=== PATIENT | male | born 1960 | race Two or more races ===

== ENCOUNTER 2018-09-27 19:20 | Emergency (ER) | payer OTHER ==
[~2018-09-27] VITALS: Ht 167.6 cm; Wt 95.3 kg
--- NOTE | 2018-09-27 20:26 | PHYS DOC ---
Past Medical History Past Medical History: Other Additional Past Medical Histor: CHRONIC BACK/ABD PAIN (TYRA RG APRN) Past Surgical History: Other Additional Past Surgical Histo: "BACK SURGERY" (TYRA RG APRN) Alcohol Use: None Drug Use: None (TYRA RG APRN) Adult General Chief Complaint Chief Complaint: HEADACHE HPI HPI Patient is a 58 year old male who presents with 1 day complaint of headache, dry and productive cough, sore throat, general malaise. Patient reports he started to feel this way tonight, had a little bit illness morning had taken a Tylenol at that time, which made his symptoms improve. Reports is not taking anything since that time. Patient denies any discomfort other than to head, reports his mouth, denies any visual changes, denies dizziness, denies chest pain, denies abdominal pain. Reports he is able to eat and drink today. Reports he went to work today, but he does not think he can go to work tomorrow. (TYRA RG APRN) Review of Systems Review of Systems Constitutional: Denies fever or chills [] Eyes: Denies change in visual acuity, redness, or eye pain [] HENT: Denies nasal congestion does report sore throat [] Respiratory: Reports dry, nonproductive cough starting today. Denies shortness of breath [] Cardiovascular: No additional information not addressed in HPI [] GI: Denies abdominal pain, nausea, vomiting, bloody stools or diarrhea [] : Denies dysuria or hematuria [] Musculoskeletal: Denies back pain or joint pain [] Integument: Denies rash or skin lesions [] Neurologic: Denies headache, focal weakness or sensory changes [] Endocrine: Denies polyuria or polydipsia [] All other systems were reviewed and found to be within normal limits, except as documented in this note. (TYRA RG APRN) Current Medications Current Medications Current Medications Medications (Trade) Dose Ordered Sig/Lucy Start Time Stop Time Status Last Admin Dose Admin Acetaminophen (Tylenol) 1,000 mg 1X ONCE 09/27/18 20:30 09/27/18 20:31 DC 09/27/18 20:40 1,000 MG (DAYTON ANDERSON DO) Allergies Allergies Allergies Coded Allergies Type Severity Reaction Last Updated Verified No Known Drug Allergies 09/27/18 No (DAYTON ANDERSON DO) Physical Exam Physical Exam Constitutional: Well developed, well nourished, no acute distress, non-toxic appearance. [] HENT: Normocephalic, atraumatic, bilateral external ears normal, oropharynx moist, no oral exudates, nose normal. Tonsils 2+. No purulence noted. Minimal erythema.[] Eyes: PERRLA, EOMI, conjunctiva normal, no discharge. [] Neck: Normal range of motion, no tenderness, supple, no stridor. [] Cardiovascular:Heart rate regular rhythm, no murmur [] Lungs & Thorax: Bilateral breath sounds clear to auscultation dry nonproductive cough noted intermittently. [] Abdomen: Bowel sounds normal, soft, no tenderness, no masses, no pulsatile masses. [] Skin: Warm, dry, no erythema, no rash. [] Back: No tenderness, no CVA tenderness. [] Extremities: No tenderness, no cyanosis, no clubbing, ROM intact, no edema. [] Neurologic: Alert and oriented X 3, normal motor function, normal sensory function, no focal deficits noted. [] Psychologic: Affect normal, judgement normal, mood normal. [] (TYRA RG APRN) Current Patient Data Vital Signs Vital Signs Date Time Temp Pulse Resp B/P (MAP) Pulse Ox O2 Delivery O2 Flow Rate FiO2 09/27/18 21:38 82 20 98 09/27/18 19:20 98.1 137/78 (97) Room Air 98.1 (DAYTON ANDERSON DO) Lab Values Laboratory Tests Test 09/27/18 20:40 Group A Streptococcus Rapid Negative (NEGATIVE) Microbiology 09/27/18 Throat Culture - Final, Complete 09/27/18 - Final, Complete (DAYTON ANDERSON DO) Lab Values rapid strep negative (TYRA RG APRN) EKG EKG [] (TYRA RG APRN) Radiology/Procedures Radiology/Procedures [] (TYRA RG APRN) Course & Med Decision Making Course & Med Decision Making Pertinent Labs and Imaging studies reviewed. (See chart for details) [Discussed symptoms with patient and family. Patient with 1 day cough, chills, discomfort. Normal physical exam, normal SpO2. Patient reporting he feels better following Tylenol administration here. States he feels better, discussed use of OTC cough medications, patient will follow up as needed. Patient in agreement, understands no antibiotics necessary. ] (TYRA RG APRN) Dragon Disclaimer Dragon Disclaimer This electronic medical record was generated, in whole or in part, using a voice recognition dictation system. (TYRA RG APRN) Departure Departure Impression: Primary Impression: Viral upper respiratory illness Additional Impression: Cough Disposition: HOME, SELF-CARE Condition: GOOD Referrals: NO PCP (PCP) Patient Instructions: Cough, Adult, [id number], Upper Respiratory Infection, Adult, [id number] Additional Instructions: As we discussed, there did not appear to be any infection. You can continue to take (2) 500 mg Tylenol for your body aches and headache. You can do this every 6 hours You can take some over the counter cough medications. Look for a product that has Dextromethorphan and one with Guaifenasin, this will help with your cough. You can take it per the package instructions Attending Signature Attending Signature I have reviewed the PA/PIN FEATHER MACHINE OPERATOR's note and plan of care. I was available for consultation as needed during the patient's visit in the emergency department. I agree with the clinical impression, plan, and disposition. (DAYTON ANDERSON DO) Problem Qualifiers TYRA RG APRN September 27, 2018 20:26 DAYTON ANDERSON DO Oct 02, 2018 06:44
[2018-09-27] MEDS ORDERED: ACETAMINOPHEN 500 MG TABLET PO ONE (20:30)
[2018-09-27 21:38] VITALS: BP 144/73
== END 2018-09-27 21:56 | disposition home or self-care (01) ==
LOC: ER 19:20
DX: J06.9 Acute upper respiratory infection, unspecified (principal); R51 Headache; R53.81 Other malaise
CPT/HCPCS: 87070; 87880; 99283

== ENCOUNTER 2021-04-14 20:46 | Emergency (ER) | payer OTHER ==
[~2021-04-14] VITALS: Ht 165.1 cm; Wt 99.0 kg
--- NOTE | 2021-04-14 22:39 | PHYS DOC ---
Past Medical History Past Medical History: Other Additional Past Medical Histor: CHRONIC BACK/ABD PAIN Past Surgical History: Other Additional Past Surgical Histo: "BACK SURGERY" Smoking Status: Never Smoker Alcohol Use: None Drug Use: None General Adult HPI: HPI: Patient is a 60-year-old male who presents to the emergency department for a nonproductive cough for the last 4 months with shortness of breath and wheezing. Patient is vaccinated for COVID-19. No treatment prior to arrival. Patient denies any fevers, sick exposure, travel, nausea, vomiting, chest pain. His vital signs are stable and he is in no acute distress. Review of Systems: Review of Systems: Constitutional: See HPI Respiratory: See HPI Cardiovascular: HPI GI: See HPI Heart Score: C/O Chest Pain: No Risk Factors: Risk Factors: DM, Current or recent (<one month) smoker, HTN, HLP, family history of CAD, obesity. Risk Scores: Score 0 - 3: 2.5% MACE over next 6 weeks - Discharge Home Score 4 - 6: 20.3% MACE over next 6 weeks - Admit for Clinical Observation Score 7 - 10: 72.7% MACE over next 6 weeks - Early Invasive Strategies Current Medications: Current Medications Medications (Trade) Dose Ordered Sig/Lucy Start Time Stop Time Status Last Admin Dose Admin Albuterol/ Ipratropium (Duoneb) 3 ml 1X ONCE 04/14/21 23:00 04/14/21 23:01 Allergies: Allergies: Allergies Coded Allergies Type Severity Reaction Last Updated Verified No Known Drug Allergies 09/27/18 No Physical Exam: PE: Constitutional: Well developed, well nourished, no acute distress, non-toxic appearance. [] HENT: Normocephalic, atraumatic, bilateral external ears normal, oropharynx moist, no oral exudates, nose normal. [] Eyes: PERRL, EOMI, conjunctiva normal, no discharge. [] Neck: Normal range of motion, no stridor Cardiovascular:Heart rate regular rhythm, no murmur [] Lungs & Thorax: Scattered wheezing noted throughout Abdomen: Bowel sounds normal, soft, no tenderness, no masses, no pulsatile masses. [] Skin: Warm, dry, no erythema, no rash. [] Back: Normal range of motion Extremities: No tenderness, no cyanosis, no clubbing, ROM intact, no edema. [] Neurologic: Alert and oriented X 3, normal motor function, normal sensory function, no focal deficits noted. [] Psychologic: Affect normal, judgement normal, mood normal. [] Current Patient Data: Labs: Laboratory Tests Test 04/14/21 23:19 Influenza Type A Antigen Negative Influenza Type B Antigen Negative Current Medications Medications (Trade) Dose Ordered Sig/Lucy Route PRN Reason Start Time Stop Time Status Last Admin Dose Admin Albuterol/ Ipratropium (Duoneb) 3 ml 1X ONCE NEB 04/14/21 23:00 04/14/21 23:01 DC 04/14/21 23:05 Albuterol/ Ipratropium (Duoneb) 3 ml 1X ONCE NEB 04/15/21 00:30 04/15/21 00:31 EKG: EKG: [] Radiology/Procedures: Radiology/Procedures: []PROCEDURE: PORTABLE CHEST 1V XR CHEST 1V Clinical History: Reason: SOA, COUGH, PUI / Spl. Instructions: / History: Technique: AP view of the chest was obtained at 04/14/2021 10:53 PM. Comparison: None. Findings: The cardiomediastinal silhouette is normal. The pulmonary vasculature is normal. The lungs and pleural margins are clear. Impression: No evidence of an acute cardiopulmonary process. Electronically signed by: Julius Clark III, MD (04/14/2021 11:11 PM) [facility] DICTATED and SIGNED BY: JULIUS CLARK III, MD DATE: 04/14/21 [id number] 0 Course & Med Decision Making: Course & Med Decision Making Pertinent Labs and Imaging studies reviewed. (See chart for details) [] Patient presents to the emergency department for shortness of breath, wheezing and a nonproductive cough for the last 4 months. Patient is in no acute distress and his vital signs are stable. Patient is afebrile. Patient will be tested for COVID-19, influenza and will have a chest x-ray performed. Patient does have wheezing noted and he will be treated with a DuoNeb treatment. Patient's vital signs continue to be stable. He is 96% on room air. He is not tachycardic nor is he febrile. Patient's rapid influenza test was negative. Patient was tested for COVID-19 and he will be notified of those results when they become available in approximately 2 days. Patient advised to self isolate until he receives these results. Patient will be discharged home with an albuterol inhaler. Patient advised to take this as needed. I discussed with patient all findings and diagnostic testing as well as the need to follow-up with PCP for further evaluation and treatment or return to the ER if any new or worsening symptoms. Strict return precautions were also discussed at length. Patient voiced understanding and agreement with the plan. Patient is hemodynamically stable at the time of disposition. Lila Disclaimer: Lila Disclaimer: This electronic medical record was generated, in whole or in part, using a voice recognition dictation system. Departure Departure Impression: Primary Impression: Person under investigation for COVID-19 Disposition: HOME / SELF CARE / HOMELESS Condition: GOOD Referrals: NO PCP (PCP) Patient Instructions: Cough, Adult Additional Instructions: You were seen in the emergency department today for a cough and shortness of breath. Your chest x-ray did not show any acute findings. You had a negative influenza test. We tested you in the ER today for COVID-19 and you will be notified of those results when they become available in approximately 2 days, please self isolate until you receive these results. You were treated in the emergency department with breathing treatments. You are being discharged home with an albuterol inhaler, please use this when you are wheezing or feel short of breath. Please follow-up with your primary care provider tomorrow regarding your ER visit. Please return to the emergency department if you develop increasing shortness of breath, chest pain, high fevers refractory to treatment, intractable nausea or vomiting, weakness, lethargy or any new or worsening concerns. Scripts Albuterol Sulfate (PROAIR HFA INHALER) 8.5 Gm Hfa.aer.ad 2 PUFF IH PRN Q4-6HRS PRN for wheezing for 21 Days, #1 INHALER 0 Refills Prov: DONALD RENE CERTIFIED MASTER LOCKSMITH 04/15/21 DONALD RENE CERTIFIED MASTER LOCKSMITH Apr 14, 2021 22:39
[2021-04-14] MEDS ORDERED: IPRATRPIUM/ALBUTEROL 0.5/2.5MG 3 ML NEBU. NEB ONE (23:00)
--- NOTE | 2021-04-14 23:13 | RAD ---
XR CHEST 1V Clinical History: Reason: SOA, COUGH, PUI / Spl. Instructions: / History: Technique: AP view of the chest was obtained at 04/14/2021 10:53 PM. Comparison: None. Findings: The cardiomediastinal silhouette is normal. The pulmonary vasculature is normal. The lungs and pleura l margins are clear. Impression: No evidence of an acute cardiopulmonary process. Electronically signed by: Blake Clark III, MD (04/14/2021 11:11 PM) [facility]
[2021-04-14 23:59] LABS: INFLUENZA A PATIENT NEGATIVE (NEGATIVE); INFLUENZA B PATIENT NEGATIVE (NEGATIVE)
[2021-04-15] MEDS ORDERED: ALBU2.5V8 IH (00:15)
[2021-04-15] MEDS ORDERED: predniSONE 20 MG TABLET PO ONE (00:30)
[2021-04-15] MEDS ORDERED: IPRATRPIUM/ALBUTEROL 0.5/2.5MG 3 ML NEBU. NEB ONE (00:30)
[2021-04-15 02:28] VITALS: BP 121/81
--- NOTE | 2021-04-15 15:34 | NUR ---
IP: Informed brother of pt of negative covid test. Pt does not speak [place]. He verbalized understanding.
== END 2021-04-15 02:55 | disposition home or self-care (01) ==
LOC: ER 20:46
DX: R05.9 Cough, unspecified (principal); Z20.822 Contact with and (suspected) exposure to COVID-19; R06.02 Shortness of breath; R06.2 Wheezing; G89.29 Other chronic pain
CPT/HCPCS: 71045; 87804; 94640; 99285; U0003; U0005